=== PATIENT | female | born 1990 | race Caucasian/White ===

== ENCOUNTER 2021-04-26 14:47 | Outpatient (CLI) | payer OTHER ==
[2021-04-28 14:16] LABS: TB1-NIL <0.00 IU/mL; TB2-NIL 0.04 IU/mL
== END 2021-04-26 23:59 | disposition home or self-care (01) ==
LOC: LAB.WCP 14:47
PROVIDERS: ATTEND Family Medicine
DX: Z11.1 Encounter for screening for respiratory tuberculosis (principal)
CPT/HCPCS: 36415; 86480

== ENCOUNTER 2022-11-20 23:19 | Outpatient (CLI) | payer OTHER | END 2022-11-20 23:20 | disposition critical access hospital (66) | LOC: EMS 23:19 | DX: F10.129 Alcohol abuse with intoxication, unspecified (principal); E16.2 Hypoglycemia, unspecified; R55 Syncope and collapse | CPT/HCPCS: A0425; A0427 ==

== ENCOUNTER 2022-11-20 23:35 | Emergency (ER) | payer OTHER ==
--- NOTE | 2022-11-20 23:57 | ED Physician Documentation ---
PD HPI ALTERED MENTAL STATUS - Stated complaint Stated Complaint: ETOH/GLF - Chief complaint Chief Complaint: Neuro - History obtained from History obtained from: EMS - History of Present Illness Quality / character: Less responsive Contributing factors: No: Anticoagulated - Additional information Additional information: BIBA. Patient is unable to contribute to HPI/ROS due to AMS. Per EMS report, patient was at a gathering with friends and drinking alcohol, friend called 911 due to patient becoming increasingly altered and exhibiting unsteady gait. Review of Systems Unable to obtain: Intoxicated PD PAST MEDICAL HISTORY - Present Medications Home Medications: Ambulatory Orders Medication Instructions Recorded Confirmed LORazepam [Ativan] 1 mg PO TID PRN #10 tablet 11/21/22 - Allergies Allergies/Adverse Reactions: Allergies Allergy/AdvReac Type Severity Reaction Status Date / Time No Known Drug Allergies Allergy Verified 11/20/22 23:46 PD ED PE NORMAL - Vitals Vital signs reviewed: Yes - General General: No acute distress, Well developed/nourished, Other (somnolent, awakens to verbal with gentle tactile (tapping/shaking shoulder), answers with slurred speech although accurate regarding orientation questions (person, place, time)) - HEENT HEENT: Atraumatic, PERRL, EOMI, Moist mucous membranes, Pharynx benign - Neck Neck: Supple, no meningeal sign - Cardiac Cardiac: RRR, No murmur - Respiratory Respiratory: No respiratory distress, Clear bilaterally - Abdomen Abdomen: Soft, Non tender Results - Vitals Vitals: Oxygen O2 Source Room air - Labs Labs: Laboratory Tests 11/21/22 11/21/22 11/21/22 00:21 00:21 03:57 WBC 4.0 L RBC 3.87 L Hgb 13.4 Hct 40.0 MCV 103.4 H MCH 34.6 H MCHC 33.5 RDW 11.9 L Plt Count 208 MPV 8.8 Neut # (Auto) 2.2 Lymph # (Auto) 1.4 L [place] # (Auto) 0.3 Eos # (Auto) 0.0 Baso # (Auto) 0.1 Absolute Nucleated RBC 0.00 Nucleated RBC % 0.0 Sodium 144 Potassium 3.2 L Chloride 106 Carbon Dioxide 24 Anion Gap 14.0 H BUN < 5 L Creatinine 0.4 Estimated GFR (MDRD) 183 Glucose 130 H Calcium 8.5 Total Bilirubin 0.7 AST 85 H ALT 62 H Alkaline Phosphatase 47 Total Protein 7.5 Albumin 4.0 Globulin 3.5 Albumin/Globulin Ratio 1.1 Lipase 29 Urine HCG, Qual NEGATIVE Urine Opiates Screen Ur Oxycodone Screen Urine Methadone Screen Ur Propoxyphene Screen Ur Barbiturates Screen Ur Tricyclics Screen Ur Phencyclidine Scrn Ur Amphetamine Screen U Methamphetamines Scrn U Benzodiazepines Scrn Urine Cocaine Screen U Cannabinoids Screen Ethyl Alcohol 424.7 11/21/22 03:57 WBC RBC Hgb Hct MCV MCH MCHC RDW Plt Count MPV Neut # (Auto) Lymph # (Auto) [place] # (Auto) Eos # (Auto) Baso # (Auto) Absolute Nucleated RBC Nucleated RBC % Sodium Potassium Chloride Carbon Dioxide Anion Gap BUN Creatinine Estimated GFR (MDRD) Glucose Calcium Total Bilirubin AST ALT Alkaline Phosphatase Total Protein Albumin Globulin Albumin/Globulin Ratio Lipase Urine HCG, Qual Urine Opiates Screen NEGATIVE Ur Oxycodone Screen NEGATIVE Urine Methadone Screen NEGATIVE Ur Propoxyphene Screen NEGATIVE Ur Barbiturates Screen NEGATIVE Ur Tricyclics Screen NEGATIVE Ur Phencyclidine Scrn NEGATIVE Ur Amphetamine Screen NEGATIVE U Methamphetamines Scrn NEGATIVE U Benzodiazepines Scrn NEGATIVE Urine Cocaine Screen NEGATIVE U Cannabinoids Screen NEGATIVE Ethyl Alcohol PD Medical Decision Making - ED course Complexity details: reviewed results, re-evaluated patient, considered differential, d/w patient Reviewed Lab Results: Tests ordered, resulted, and reviewed by me: CBC, ER abdominal panel, urine HCG, urine drug scren, serum ethanol level. ED course: Presents with AMS , per EMS report patient was drinking heavily (alcohol) at a social gathering tonight. During ED observation, she became increasingly awake and alert and eventually AAOX3. Relevant test results are serum alcohl level of 424.7. She is also mildly hypokalemic with potassium of 3.2 for which she is given 20meq KCL PO. Results d/w patient. Once she is awake and alert and appropriately oriented, she is able to provide accurate and appropriate information regarding HPI/ROS. She denies any pain including CHACON, neck pain. She denies SI. She acknowledges she drank too much alcohol tonight; she says she does not drink on a regular/heavy basis, and had a completely sober [place] holiday week, only drinking heavily last night. She says she has never had alcohol withdrawal symptoms nor require medical attention nor inpatient treatment for alcoholism/withdrawal. I am providing her a prescription for a short course of lorazepam should she experience alcohol withdrawal symptoms. Return precautions discussed. Departure - Departure Disposition: 01 Home, Self Care Clinical Impression: Hypokalemia Alcohol intoxication Qualifiers: Complication of substance-induced condition: uncomplicated Qualified Code(s): F10.920 - Alcohol use, unspecified with intoxication, uncomplicated Condition: Good Instructions: ED Alcohol Intoxication, ED Potassium Deficiency Prescriptions: LORazepam [Ativan] 1 mg PO TID PRN #10 tablet PRN Reason: Alcohol Withdrawal Comments: Your alcohol level, as measured by blood tests tonight, was extremely high. I would strongly advise against driving until at least tomorrow (November 22). Also noticed on the blood tests was an incidental finding of a mildly low potassium level for which you were given a dose of potassium orally during your emergency room stay. You should mention this to your primary care provider, as they will likely want to recheck your potassium level in the next few weeks to see that it has normalized; if it remains low, you might need further tests to determine why it is low. Your liver enzymes were very mildly elevated. Obviously, the most likely explanation for this finding is the alcohol intake. You should also mention this finding to your primary care provider, as they might also want to recheck your liver function tests in the next few weeks. Obviously, you need to stop drinking alcohol to prevent permanent damage to your liver (cirrhosis). If you need help quitting drinking, you can talk to your primary care provider about op tions. If you feel you need help with detox/rehab, one option you can try is [facility] in [place] ([phone]; [address] [place] [address] Avenue). I have electronically submitted a prescription for lorazepam to [facility]'s pharmacy in [place]. This is a medication that can help with the symptoms of alcohol withdrawal. As we discussed, do not take the medication and higher doses or higher frequency than as indicated on the prescription label. It is possible that you will not need any of this medication, but if you feel particularly anxious or shaky as you continue to metabolize the alcohol you had last night, you can use the lorazepam as prescribed. Do not drive for at least 6 hours after a dose of the lorazepam. Discharge Date/Time: 11/21/22 05:55
[2022-11-21 00:33] LABS: BASOPHILS # (AUTO) 0.1 10^3/uL (0.0-0.1); BASOPHILS % (AUTO) 1.5 %; HGB - HEMOGLOBIN 13.4 g/dL (12.0-16.0); LYMPHOCYTES # (AUTO) 1.4 10^3/uL (1.5-3.5); LYMPHOCYTES % (AUTO) 35.3 %; MEAN CORPUSCULAR HEMOGLOBIN 34.6 pg (27.0-31.0); MEAN CORPUSCULAR HGB CONC 33.5 g/dL (32.0-36.0); MEAN CORPUSCULAR VOLUME 103.4 fL (81.0-99.0); MEAN PLATELET VOLUME 8.8 fL (7.9-10.8); MONOCYTES # (AUTO) 0.3 10^3/uL (0.0-1.0); MONOCYTES % (AUTO) 6.8 %; NEUTROPHILS # (AUTO) 2.2 10^3/uL (1.5-6.6); NEUTROPHILS % (AUTO) 55.1 %; PLT - PLATELET COUNT 208 10^3/uL (130-450); RED BLOOD COUNT 3.87 10^6/uL (4.20-5.40); RED CELL DISTRIBUTION WIDTH 11.9 % (12.0-15.0)
[2022-11-21 00:43] LABS: ALBUMIN/GLOBULIN RATIO 1.1 (1.0-2.2); ALKALINE PHOSPHATASE 47 IU/L (42-121); ALT ALANINE AMINOTRANSFERASE 62 IU/L (10-60); AST ASPARTATE AMINOTRANSFERASE 85 IU/L (10-42); BILIRUBIN,TOTAL 0.7 mg/dL (0.2-1.0); BUN - BLOOD UREA NITROGEN < 5 mg/dL (6-20); CALCIUM 8.5 mg/dL (8.5-10.3); CARBON DIOXIDE - CO2 24 mmol/L (21-32); CHLORIDE 106 mmol/L (101-111); CREATININE 0.4 mg/dL (0.4-1.0); ETOH - ETHANOL 424.7 mg/dL; GFR - MDRD 183 (>89); GLUCOSE 130 mg/dL (70-100); LIPASE 29 U/L (22-51); POTASSIUM 3.2 mmol/L (3.5-5.0); SODIUM 144 mmol/L (135-145); TOTAL PROTEIN 7.5 g/dL (6.7-8.2)
[2022-11-21 04:09] LABS: HCG UR QUAL NEGATIVE
[2022-11-21 04:14] LABS: MUDS CUTOFF CONCENTRATIONS CUTOFF CONC BELOW:
[2022-11-21 04:22] LABS: AMPHETAMINE SCREEN,URINE NEGATIVE (NEGATIVE); BARBITURATE SCREEN,UR NEGATIVE (NEGATIVE); BENZODIAZEPINES SCREEN, URINE NEGATIVE (NEGATIVE); COCAINE SCREEN URINE NEGATIVE (NEGATIVE); METHADONE SCREEN, URINE NEGATIVE (NEGATIVE); METHAMPHETAMINES SCREEN, URINE NEGATIVE (NEGATIVE); OPIATE SCREEN, URINE NEGATIVE (NEGATIVE); OXYCODONE SCREEN, URINE NEGATIVE (NEGATIVE); PROPOXYPHENE SCREEN, URINE NEGATIVE (NEGATIVE); THC CANNABINOID SCREEN, URINE NEGATIVE (NEGATIVE); TRICYCLIC ANTIDEPRESSANT,URINE NEGATIVE (NEGATIVE)
[2022-11-21] MEDS ORDERED: POTASSIUM CHLORIDE 20 MEQ TABLET PO STA (05:41)
[2022-11-21 05:53] VITALS: BP 139/105
== END 2022-11-21 05:55 | disposition home or self-care (01) ==
LOC: EDUNIT# → ED 23:35
DX: F10.129 Alcohol abuse with intoxication, unspecified (principal); E87.6 Hypokalemia; Y90.8 Blood alcohol level of 240 mg/100 ml or more
CPT/HCPCS: 36415; 80053; 80306; 80320; 81025; 83690; 85025; 99283; 99284; A9270

== ENCOUNTER 2023-06-22 20:15 | Emergency (ER) | payer OTHER ==
--- NOTE | 2023-06-22 20:36 | ED Physician Documentation ---
History of Present Illness - Stated complaint Stated Complaint: GLF/CONFUSION - Chief complaint Chief Complaint: General - History obtained from History obtained from: Patient, Family - Additonal information Additional information: 32-year-old female with a past medical history of alcoholism presents after being found on the floor next to her bed with apparent seizure-like activity according to her stepfather. He states that he found her unresponsive, "gurgling and spitting clear fluid out of her mouth, and shaking." She stopped seizing and woke up shortly thereafter. She was able to get in the car to come with him to the hospital. She states that she stopped drinking 2 days ago, previously was drinking about 6 shots of hard alcohol and 2 white claws a day for the last several weeks. She has had intermittent periods of heavy alcohol use and intermittent periods of sobriety over the last several years. She has attended a detox program in [place] in the past that was about a week long but has never attended any type of rehab other than AA meetings. She states she drinks primarily due to her depression and anxiety, her is stationed overseas and has been gone for a year and is not due to return for another 8 months. Her son is currently staying with extended family members in [place] while she is working on her alcohol related issues and the patient is staying with her stepdad here in [place]. They are all planning to move to [place] soon and the stress of her 's deployment, being away from her child, and moving as been weighing on the patient increasing her anxiety and depression. Patient denies any prior alcohol withdrawal seizures. She denies any other medical conditions, denies any drug use. She denies any injuries in the fall though is noted to have a number of bruises which are listed on her physical exam. She has no other medical issues. Review of Systems Constitutional: reports: Reviewed and negative Eyes: reports: Reviewed and negative Ears: reports: Reviewed and negative Nose: reports: Reviewed and negative Throat: reports: Reviewed and negative Cardiac: reports: Reviewed and negative Respiratory: reports: Reviewed and negative GI: reports: Abdominal Pain, Diarrhea. denies: Abdominal Swelling, Nausea, Vomiting, Constipation, Hematemesis, Bloody / black stool : reports: Reviewed and negative Skin: reports: Reviewed and negative Musculoskeletal: reports: Reviewed and negative Neurologic: reports: Seizure, Altered mental status. denies: Generalized weakness, Focal weakness, Numbness, Difficulty speaking, Near syncope, Headache, Head injury Psychiatric: reports: Depressed, Anxiety, Insomnia. denies: Suicidal, Homicidal, Hallucinations, Delusions Endocrine: reports: Reviewed and negative Immunocompromised: reports: Reviewed and negative PD PAST MEDICAL HISTORY - Present Medications Home Medications: Ambulatory Orders Medication Instructions Recorded Confirmed LORazepam [Ativan] 1 mg PO TID PRN #10 tablet 11/21/22 LORazepam [Ativan] 1 mg PO TID PRN #10 tablet 06/22/23 - Allergies Allergies/Adverse Reactions: Allergies Allergy/AdvReac Type Severity Reaction Status Date / Time No Known Drug Allergies Allergy Verified 06/22/23 20:23 PD ED PE NORMAL - Vitals Vital signs reviewed: Yes - General General: Alert and oriented X 3, No acute distress, Well developed/nourished - HEENT HEENT: PERRL, EOMI, Moist mucous membranes, Pharynx benign, Other (bruising left jaw, no hematoma no tenderness) - Neck Neck: Supple, no meningeal sign, No adenopathy - Cardiac Cardiac: RRR, No murmur - Respiratory Respiratory: No respiratory distress, Clear bilaterally - Abdomen Abdomen: Normal bowel sounds, Soft, Non tender, Non distended, No organomegaly - Back Back: No CVA TTP, No spinal TTP - Derm Derm: Normal color, Warm and dry, Other (numerous bruises: right upper arm, right shoulder, left forearm/elbow/upper arm, left side of neck) - Extremities Extremities: No deformity, No tenderness to palpate, Normal ROM s pain, No edema, No calf tenderness / cord - Neuro Neuro: Alert and oriented X 3 (oriented x 2 (no date)), No motor deficit, No sensory deficit, Normal speech, Other (mild upper ext tremor) Eye Opening: Spontaneous Motor: Obeys Commands Verbal: Confused (mild confusion, disoriented only to date) GCS Score: 14 - Psych Psych: Normal mood, Normal affect Results - Vitals Vitals: Vital Signs - 24 hr 06/22/23 20:23 Temperature 36.5 C Heart Rate 98 Respiratory 16 Rate Blood Pressure 150/100 H O2 Saturation 96 Oxygen O2 Source Room air - Labs Labs: Laboratory Tests 06/22/23 06/22/23 06/22/23 20:56 20:56 20:56 WBC 3.3 L RBC 3.70 L Hgb 12.8 Hct 36.5 L MCV 98.6 MCH 34.6 H MCHC 35.1 RDW 12.6 Plt Count 58 L MPV 9.4 Neut # (Auto) 2.6 Lymph # (Auto) 0.4 L [place] # (Auto) 0.3 Eos # (Auto) 0.0 Baso # (Auto) 0.0 Absolute Nucleated RBC 0.00 Nucleated RBC % 0.0 Sodium 133 L Potassium 3.0 L Chloride 94 L Carbon Dioxide 26 Anion Gap 13.0 BUN 6 Creatinine 0.6 Estimated GFR (MDRD) 114 Glucose 207 H Calcium 10.0 Magnesium 1.4 L Total Bilirubin 2.4 H AST 124 H ALT 76 H Alkaline Phosphatase 51 Total Protein 7.5 Albumin 4.3 Globulin 3.2 Albumin/Globulin Ratio 1.3 Lipase 34 Ethyl Alcohol < 10.0 PD Medical Decision Making - ED course Complexity details: reviewed old records, reviewed results, re-evaluated patient, considered differential, d/w patient, d/w family ED course: 32-year-old female with a past medical history of alcohol use as described in HPI presents aftHe likely alcohol withdrawal seizure that occurred at home as described in HPI. She was found by her stepfather, having apparent seizure-like activity. She woke up shortly thereafter and was brought in the ER. On arrival here, the patient is awake alert, mildly tremulous, pleasant and conversant though somewhat confused stating that the month is August, Though quickly now realizes it is June stating that her birthday is next month in July. She has a mild headache, no nausea or vomiting, Mild tremor, no sweatiness, she appears mildly anxious, she is somewhat fidgeting and restless, she has no tactile disturbances, no current auditory disturbances, no current visual disturbances, was briefly disoriented to the date but is now oriented. She has a number of bruises on the upper arms and left jawline, no bony injuries. We did obtain a CT scan which is negative. Labs show mild elevation in lfts, K+ 3.0, mag 1.4. She was given 1L NS w/ thiamine, a total of 50meq of potassium, 2gm of magnesium, and 1mg of IV ativan. She is currently receiving these infusions and I anticipate she will be able to be discharged home after medications, unless she has worsening withdrawal symptoms. I will order prn ativan and her stepfather will monitor patient after discharge. Return precautions reviewed. I strongly urged patient to consider inpatient rehab for alcoholism. She is leaving for a move to [place] at the end of the week and therefore would like to consider rehab once she is settled at her new home. Departure - Departure Clinical Impression: Alcohol withdrawal seizure without complication, Hypokalemia, Hypomagnesemia Condition: Good Instructions: ED Potassium Deficiency, ED Seizure Alcohol Withdrawal Prescriptions: LORazepam [Ativan] 1 mg PO TID PRN #10 tablet PRN Reason: alcohol withdrawal symptoms Forms: PCP List
[2023-06-22] MEDS ORDERED: LORazepam 2 MG/ML VIAL IVP STA (20:51)
[2023-06-22] MEDS ORDERED: SODIUM CHLORIDE 0.9% 1,000 ML IV STA (20:51)
[2023-06-22 21:03] LABS: BASOPHILS % (AUTO) 0.3 %; EOSINOPHILS % (AUTO) 0.3 %; HCT - HEMATOCRIT 36.5 % (37.0-47.0); HGB - HEMOGLOBIN 12.8 g/dL (12.0-16.0); LYMPHOCYTES # (AUTO) 0.4 10^3/uL (1.5-3.5); LYMPHOCYTES % (AUTO) 11.3 %; MEAN CORPUSCULAR HEMOGLOBIN 34.6 pg (27.0-31.0); MEAN CORPUSCULAR HGB CONC 35.1 g/dL (32.0-36.0); MEAN CORPUSCULAR VOLUME 98.6 fL (81.0-99.0); MEAN PLATELET VOLUME 9.4 fL (7.9-10.8); MONOCYTES # (AUTO) 0.3 10^3/uL (0.0-1.0); MONOCYTES % (AUTO) 8.2 %; NEUTROPHILS # (AUTO) 2.6 10^3/uL (1.5-6.6); NEUTROPHILS % (AUTO) 79.6 %; PLT - PLATELET COUNT 58 10^3/uL (130-450); RED CELL DISTRIBUTION WIDTH 12.6 % (12.0-15.0); WHITE BLOOD COUNT 3.3 x10^3/uL (4.8-10.8)
[2023-06-22 21:19] LABS: ALBUMIN 4.3 g/dL (3.2-5.5); ALBUMIN/GLOBULIN RATIO 1.3 (1.0-2.2); ALKALINE PHOSPHATASE 51 IU/L (42-121); ALT ALANINE AMINOTRANSFERASE 76 IU/L (10-60); AST ASPARTATE AMINOTRANSFERASE 124 IU/L (10-42); BILIRUBIN,TOTAL 2.4 mg/dL (0.2-1.0); BUN - BLOOD UREA NITROGEN 6 mg/dL (6-20); CARBON DIOXIDE - CO2 26 mmol/L (21-32); CHLORIDE 94 mmol/L (101-111); CREATININE 0.6 mg/dL (0.4-1.0); ETOH - ETHANOL < 10.0 mg/dL; GFR - MDRD 114 (>89); GLUCOSE 207 mg/dL (70-100); LIPASE 34 U/L (22-51); SODIUM 133 mmol/L (135-145); TOTAL PROTEIN 7.5 g/dL (6.7-8.2)
[2023-06-22] MEDS ORDERED: POTASSIUM CHLOR 10 MEQ/100 ML 10 MEQ/100 ML BAG IV STA (21:27)
[2023-06-22] MEDS ORDERED: POTASSIUM CHLORIDE 20 MEQ TABLET PO STA (21:28)
[2023-06-22] MEDS ORDERED: MAGNESIUM SULFATE 2 GRAM 2 GM/50 ML BAG IV ONE (21:56)
[2023-06-22] MEDS ORDERED: THIAMINE INJ 100 MG in SODIUM CHLORIDE 0.9% 50 ML IV STA (21:56)
[2023-06-22] MEDS ORDERED: THIAMINE 100 MG/1 ML 2 ML MDV ONE (22:16)
[2023-06-22] MEDS ORDERED: ACETAMINOPHEN 325 MG TABLET PO STA (22:36)
--- NOTE | 2023-06-22 22:46 | CT Report ---
PROCEDURE: HEAD WO INDICATIONS: seizure w/ fall, AMS TECHNIQUE: Noncontrast 4.5 mm thick angled axial sections acquired from the foramen magnum to the vertex. For r adiation dose reduction, the following was used: automated exposure control, adjustment of mA and/or kV according to patient size. COMPARISON: None. FINDINGS: Image quality: Excellent. CSF spaces: Basal cisterns are patent. No extra-axial fluid collections. Ventricles are normal in size and shape. Brain: No intracranial hemorrhage, mass, or mass effect. Borges-white matter interface appears preser shamir. Skull and face: Calvarium and visualized facial bones are intact, without suspicious lesions. Sinuses: Visualized sinuses and mastoids are clear. IMPRESSION: 1. No acute intracranial abnormality. Reviewed by: Micah Landa MD on 06/22/2023 10:45 PM PDT Approved by: Micah Landa MD on 06/22/2023 10:45 PM PDT Station ID: [id number]
[2023-06-22] MEDS ORDERED: LORazepam 1 MG TABLET PO ONE (23:30)
[2023-06-22 23:46] VITALS: BP 163/113; O2SAT 100
== END 2023-06-22 23:59 | disposition home or self-care (01) ==
LOC: ED 20:15
DX: F10.239 Alcohol dependence with withdrawal, unspecified (principal); Y90.0 Blood alcohol level of less than 20 mg/100 ml; R56.9 Unspecified convulsions; E87.6 Hypokalemia; E83.42 Hypomagnesemia
CPT/HCPCS: 36415; 70450; 80053; 80320; 83690; 83735; 85025; 96365; 96366; 96368; 96375; 99284; 99285; A9270; J2060; J3411; J7040; J8499